=== PATIENT | female | born 1985 | race Hispanic/Latino ===

== ENCOUNTER 2018-01-26 21:15 | Emergency (ER) | payer OTHER ==
[2018-01-26] MEDS ORDERED: Ketorolac Tromethamine 30 MG/ML VIAL ONE (21:37)
[2018-01-26] MEDS ORDERED: Ondansetron HCl/PF 4 MG/2 ML Vial ONE (21:37)
[2018-01-26 21:40] LABS: #Basophils 0.1 thou/uL (0.0-0.2); #Eosinphils 0.3 thou/uL (0.0-0.7); #Lymphocytes 2.7 thou/uL (1.20-3.40); #Monocytes 0.6 thou/uL (0.11-0.59); %Basophils 0.5 % (0.0-1.0); %Eosinophils 3.1 % (0.0-10.0); %Lymphocytes 25.6 % (21.0-51.0); %Monocytes 5.7 % (0.0-10.0); Hemoglobin 13.8 g/dL (12.0-16.0); Mean Corpuscular HGB CONC 32.5 g/dL (32.0-36.0); Mean Corpuscular Hemoglobin 28.9 pg (27.0-31.0); Mean Platelet Volume 10.3 fL (7.4-10.4); Platelet Count 166 thou/uL (130-400); RBC Distribution Width 13.9 % (11.5-14.5); Red Blood Cell (RBC) Count 4.75 mill/uL (4.20-5.40); White Blood Cell (WBC) Count 10.7 thou/uL (4.8-10.8)
[2018-01-26 22:08] LABS: ALT (SGPT) 26 U/L (8-55); AST (SGOT) 34 U/L (5-34); Albumin 4.4 g/dL (3.5-5.0); Alkaline Phosphatase 78 U/L (40-150); Anion Gap 15 mmol/L (10-20); BUN (Urea Nitrogen) 19 mg/dL (7.0-18.7); Bilirubin, Total 0.5 mg/dL (0.2-1.2); CK (CPK) 205 U/L (29-168); Calc. Creatinine Clearance 0 mL/min (70-130); Carbon Dioxide 20 mmol/L (22-29); Chloride 108 mmol/L (98-107); Estimated GFR-MDRD 90; Globulin 3.5 g/dL (2.4-3.5); Glucose 103 mg/dL (70-105); Lipase 23 U/L (8-78); Potassium 3.9 mmol/L (3.5-5.1); Protein, Total 7.9 g/dL (6.0-8.3); Sodium 139 mmol/L (136-145)
[2018-01-26] MEDS ORDERED: Morphine 4 MG/ML VIAL ONE (22:28)
--- NOTE | 2018-01-26 22:58 | ULT ---
RIGHT UPPER QUADRANT ULTRASOUND: 01/26/2018 HISTORY: Right upper quadrant pain. COMPARISON: None. TECHNIQUE: Multiplanar boyd-scale sonographic imaging of the right upper quadrant obtained. FINDINGS: Secondary to body habitus and bowel gas, the pancreas and the liver are poorly visualized. The sonog rapher reports a negative Moreno sign. The hepatic parenchyma appears heterogeneous and echogenic, s uggesting steatosis. Echogenicity stones are seen within the gallbladder lumen. The gallbladder wal l is at the upper limits of normal in thickness. No pericholecystic fluid is evident. The common bi le duct measures 5 mm, within normal limits. The right kidneys measures 12.2 cm in craniocaudal dime nsion and demonstrates no stone, hydronephrosis, or mass. IMPRESSION: Cholelithiasis with a positive Moreno sign. These findings are suspicious for acute cholecystitis, i n the proper clinical setting. POS: ALEK
== END 2018-01-27 01:00 | disposition home or self-care (01) ==
LOC: EEVIPCON 21:15 → ERS 21:15
DX: K80.20 Calculus of gallbladder without cholecystitis without obstruction (principal); E66.9 Obesity, unspecified; F41.9 Anxiety disorder, unspecified
CPT/HCPCS: 76705; 80053; 82550; 83690; 85025; 93005; 96361; 96374; 96375; J1885; J2270; J2405

== ENCOUNTER 2018-07-01 05:49 | Day surgery (SDC) | payer OTHER ==
[2018-07-01] MEDS ORDERED: Ketorolac Tromethamine 30 MG/ML VIAL ONE (06:55)
[2018-07-01] MEDS ORDERED: ceFAZolin Sodium 2 GM/100 ML BAG ONE (06:55)
[2018-07-01] MEDS ORDERED: Scopolamine 1.5 mg/72 hour Patch ONE (07:16)
[2018-07-01] MEDS ORDERED: Midazolam HCl 2 mg/2 ml Vial ONE (08:04)
[2018-07-01] MEDS ORDERED: Bupivacaine/Epinephrine 0.25% 30 ML VIAL ONE (10:25)
[2018-07-01] MEDS ORDERED: Fentanyl 100 MCG/2 ML VIAL ONE ×2 (10:47→12:30)
[2018-07-01] MEDS ORDERED: SUGAMMADEX SODIUM 500 MG/5 ML VIAL ONE (12:00)
[2018-07-01] MEDS ORDERED: Promethazine HCl 25 MG/ML VIAL ONE (12:30)
[2018-07-01] MEDS ORDERED: Morphine 2 MG/ML SYRINGE ONE ×2 (13:24→13:37)
[2018-07-01] MEDS ORDERED: PROPOFOL 200 MG/20 ML VIAL ONE (13:53)
[2018-07-01] MEDS ORDERED: Rocuronium Bromide 10 MG/ML (10ML VIAL) ONE (13:53)
[2018-07-01] MEDS ORDERED: Ondansetron PF 4 MG/2 ML Vial ONE (13:53)
[2018-07-01] MEDS ORDERED: ePHEDrine 50 MG/ML VIAL ONE (13:53)
[2018-07-01] MEDS ORDERED: Dexamethasone 20 MG/5 ML VIAL ONE (13:53)
[2018-07-01] MEDS ORDERED: Lidocaine 1% PF 5 ML VIAL ONE (13:53)
[2018-07-01] MEDS ORDERED: HYDROcodone/Acetaminophen 5/325 mg Tablet ONE (14:55)
--- NOTE | 2018-07-01 18:17 | EKG ---
Test Reason : PREOP Blood Pressure : / mmHG Vent. Rate : 058 BPM Atrial Rate : 058 BPM P-R Int : 172 ms QRS Dur : 102 ms QT Int : 402 ms P-R-T Axes : 041 038 025 degrees QTc Int : 394 ms Sinus bradycardia with sinus arrhythmia Otherwise normal ECG When compared with ECG of 26-JAN-2018 21:42, Previous ECG has undetermined rhythm, needs review Non-specific change in ST segment in Inferior leads ST elevation has replaced ST depression in Anterior leads Nonspecific T wave abnormality has replaced inverted T waves in Inferior leads Nonspecific T wave abnormality no longer evident in Anterior leads Confirmed by DR. Eder JOEL ([id number]) on 07/01/2018 6:16:59 PM Referred By: ELIF Confirmed By:DR. Eder JOEL
--- NOTE | 2018-07-02 11:00 | OP ---
DATE OF PROCEDURE: 07/01/2018 PREOPERATIVE DIAGNOSIS: Symptomatic cholelithiasis. POSTOPERATIVE DIAGNOSIS: Symptomatic cholelithiasis. PROCEDURE PERFORMED: Laparoscopic cholecystectomy. ANESTHESIA: General endotracheal. INDICATIONS: The patient is a morbidly obese 32-year-old female. She has actually lost over a 130 pounds in the last 2 years in preparation for the surgery (at my request). She is incarcerated in the [facility] locally. She has had symptoms related to her gallbladder for this entire time and is taken to the operative room at this time for laparoscopic cholecystectomy. DESCRIPTION OF OPERATION: Informed consent was obtained. The patient was taken to the operating room where general endotracheal anesthesia was obtained with the patient in the supine position. The abdomen was prepped with Betadine and draped in the usual sterile fashion. 0.25% Marcaine with epinephrine was infiltrated below the umbilicus and a 10 mm infraumbilical incision was created. A Veress needle was passed through this incision into the peritoneal cavity. A pneumoperitoneum was established using carbon dioxide up to a pressure of 15 mmHg. Local anesthetic was infiltrated and 3 additional 5 mm right upper quadrant incisions were created. Through the mid incision, a 5 mm port was passed into the peritoneal cavity. The camera was passed through this port and under direct vision, an 11 port was passed through the infraumbilical incision. The camera was replaced through this port, and under direct vision, 2 additional 5 mm ports were passed through the incisions already created. The gallbladder was grasped and retracted in a cephalad direction. Minimal adhesions were bluntly stripped away from the apex of the gallbladder, and the apex was retracted laterally and inferiorly. Careful dissection was carried out to the apex of the gallbladder to identify the cystic duct and cystic artery. These were each carefully dissected circumferentially. The duct was of normal caliber. Both the duct and the artery were divided between clips, leaving 2 on the side to remain within the abdomen. The gallbladder was then dissected out of the gallbladder fossa using electrocautery and removed through the infraumbilical port site. The fascia was closed with 0 Vicryl suture and a GraNee needle. The right upper quadrant was inspected and irrigated. All irrigant was aspirated. All ports and instruments were removed under direct vision. Pneumoperitoneum was carefully evacuated. Additional local anesthetic was infiltrated into each port site. The skin edges were approximated with 4-0 Monocryl subcuticular sutures, and Dermabond was placed externally. There were no complications. The patient tolerated the procedure well and was taken to the recovery room in stable condition. FINDINGS: The patient's morbid obesity made placement of ports somewhat challenging. I eventually was able to place the 4 ports in a fairly standard fashion. The port that would normally be at the umbilicus was placed several inches superior and somewhat to the right of her umbilicus to allow for appropriate visualization of the gallbladder. The surgery was performed uneventfully. Her bile duct was small and noninflamed. There were no complications and negligible blood loss during the operation. The patient tolerated the procedure well. There were no numerous gallstones present within the gallbladder. Job ID: [id number]
== END 2018-07-01 16:15 ==
LOC: SDC 05:49
PROVIDERS: ATTEND Specialist
PROC: 0FT44ZZ Resection of Gallbladder, Percutaneous Endoscopic Approach (ICD-10-PCS; principal; 2018-07-01)
DX: K80.10 Calculus of gallbladder with chronic cholecystitis without obstruction (principal); E66.01 Morbid (severe) obesity due to excess calories; Z79.84 Long term (current) use of oral hypoglycemic drugs
CPT/HCPCS: 88304; 93005; 93010; J0131; J0690; J1100; J1885; J2001; J2250; J2270; J2405; J2550; J2704; J3010; J3490